=== PATIENT | male | born 1940 | race Caucasian/White ===

== ENCOUNTER 2017-12-29 13:57 | Emergency (ER) | payer OTHER ==
--- NOTE | 2017-12-29 14:17 | ER Report ---
History and Physical Time Seen By MD: 14:17 Hx. of Stated Complaint: dysuria x 4 days , pain swelling testicles bilaterally HPI/ROS 77 year old uncircumcised male , dysuria and frequency w urination Allergies: Coded Allergies: nitroglycerin (Verified Adverse Reaction, Unknown, NAUSEA/VOMITING, 12/29/17) Home Meds Active Scripts Doxycycline Hyclate (DOXYCYCLINE HYCLATE) 100 Mg Tablet, 100 MG PO BID for 10 Days Prov:MYRON JOHNSTON 12/29/17 Reported Medications Simvastatin (SIMVASTATIN) 20 Mg Tablet, 20 MG PO HS, TAB 12/29/17 Omeprazole (OMEPRAZOLE) 20 Mg Capsule.dr, 1 CAP PO QDAY, CAP 12/29/17 Metoprolol Tartrate (METOPROLOL TARTRATE) 25 Mg Tablet, PO BID, TAB 12/29/17 Past Medical/Surgical History Hypertension, hyperlipidemia Hx Smoking: No Exposure to Second Hand Smoke?: No Hx Substance Use Disorder: No Hx Alcohol Use: No Constitutional Vital Sign - Last 24 Hours 12/29/17 14:16 Temp 98.6 Pulse 60 Resp 16 B/P (MAP) 160/87 Pulse Ox 89 O2 Delivery Room Air Physical Exam 77 year old alert anxious, hrr lungs cta, abd soft, bs x 4, penis non circunsized, red tip, bilateral pain swelling testicles , pain testes no pain spermatic corn, no prostate pain Medical Decision Making Data Points Result Diagram: 12/29/17 1434 12/29/17 1434 Laboratory Hematology Test 12/29/17 14:02 12/29/17 14:34 Urine Color Yellow Urine Clarity Clear Urine pH 7.0 pH (4.8-9.5) Urine Specific [place] 1.011 Urine Protein Negative mg/dL (NEGATIVE) Urine Glucose (UA) Negative mg/dL (NEGATIVE) Urine Ketones Negative mg/dL (NEGATIVE) Urine Blood Negative (NEGATIVE) Urine Nitrite Negative (NEGATIVE) Urine Bilirubin Negative (NEGATIVE) Urine Urobilinogen 2.0 mg/dL (0.2-1.9) Urine Leukocyte Esterase Negative (NEGATIVE) Urine RBC None /HPF (0-2/HPF) Urine WBC <1 /HPF (0-5/HPF) Urine Squamous Epithelial Cells None /LPF (</=FEW) Urine Bacteria Negative /HPF (NONE-FEW) Urine Mucus None /HPF (NONE-FEW) Red Blood Count 4.40 M/uL (4.00-5.60) Mean Corpuscular Volume 96.7 fL (80.0-96.0) Mean Corpuscular Hemoglobin 32.9 pg (26.0-33.0) Mean Corpuscular Hemoglobin Concent 34.0 g/dL (32.0-36.0) Red Cell Distribution Width 13.4 % (11.5-14.5) Mean Platelet Volume 9.3 fL (7.2-11.1) Neutrophils (%) (Auto) 64.6 % (39.4-72.5) Lymphocytes (%) (Auto) 24.1 % (17.6-49.6) Monocytes (%) (Auto) 8.3 % (4.1-12.4) Eosinophils (%) (Auto) 2.3 % (0.4-6.7) Basophils (%) (Auto) 0.7 % (0.3-1.4) Nucleated RBC Relative Count (auto) 0.0 /100WBC Neutrophils # (Auto) 3.2 K/uL (2.0-7.4) Lymphocytes # (Auto) 1.2 K/uL (1.3-3.6) Monocytes # (Auto) 0.4 K/uL (0.3-1.0) Eosinophils # (Auto) 0.1 K/uL (0.0-0.5) Basophils # (Auto) 0.0 K/uL (0.0-0.1) Nucleated RBC Absolute Count (auto) 0.00 K/uL Sodium Level 143 mmol/L (137-145) Potassium Level 4.1 mmol/L (3.5-5.0) Chloride Level 107 mmol/L (98-107) Carbon Dioxide Level 25 mmol/L (22-30) Blood Urea Nitrogen 13 mg/dl (9-21) Creatinine 0.80 mg/dl (0.66-1.25) Glomerular Filtration Rate Calc > 60.0 Random Glucose 97 mg/dl (75-110) Calcium Level 9.0 mg/dl (8.4-10.2) Total Bilirubin 0.7 mg/dl (0.2-1.3) Aspartate Amino Transf (AST/SGOT) 23 U/L (0-35) Alanine Aminotransferase (ALT/SGPT) 27 U/L (0-56) Alkaline Phosphatase 45 U/L (0-126) Total Protein 7.2 g/dl (6.3-8.2) Albumin 4.1 g/dl (3.5-5.0) Chemistry Test 12/29/17 14:02 12/29/17 14:34 Urine Color Yellow Urine Clarity Clear Urine pH 7.0 pH (4.8-9.5) Urine Specific [place] 1.011 Urine Protein Negative mg/dL (NEGATIVE) Urine Glucose (UA) Negative mg/dL (NEGATIVE) Urine Ketones Negative mg/dL (NEGATIVE) Urine Blood Negative (NEGATIVE) Urine Nitrite Negative (NEGATIVE) Urine Bilirubin Negative (NEGATIVE) Urine Urobilinogen 2.0 mg/dL (0.2-1.9) Urine Leukocyte Esterase Negative (NEGATIVE) Urine RBC None /HPF (0-2/HPF) Urine WBC <1 /HPF (0-5/HPF) Urine Squamous Epithelial Cells None /LPF (</=FEW) Urine Bacteria Negative /HPF (NONE-FEW) Urine Mucus None /HPF (NONE-FEW) White Blood Count 4.9 k/uL (4.5-11.0) Red Blood Count 4.40 M/uL (4.00-5.60) Hemoglobin 14.5 g/dL (14.0-18.0) Hematocrit 42.5 % (42.0-52.0) Mean Corpuscular Volume 96.7 fL (80.0-96.0) Mean Corpuscular Hemoglobin 32.9 pg (26.0-33.0) Mean Corpuscular Hemoglobin Concent 34.0 g/dL (32.0-36.0) Red Cell Distribution Width 13.4 % (11.5-14.5) Platelet Count 154 K/uL (150-450) Mean Platelet Volume 9.3 fL (7.2-11.1) Neutrophils (%) (Auto) 64.6 % (39.4-72.5) Lymphocytes (%) (Auto) 24.1 % (17.6-49.6) Monocytes (%) (Auto) 8.3 % (4.1-12.4) Eosinophils (%) (Auto) 2.3 % (0.4-6.7) Basophils (%) (Auto) 0.7 % (0.3-1.4) Nucleated RBC Relative Count (auto) 0.0 /100WBC Neutrophils # (Auto) 3.2 K/uL (2.0-7.4) Lymphocytes # (Auto) 1.2 K/uL (1.3-3.6) Monocytes # (Auto) 0.4 K/uL (0.3-1.0) Eosinophils # (Auto) 0.1 K/uL (0.0-0.5) Basophils # (Auto) 0.0 K/uL (0.0-0.1) Nucleated RBC Absolute Count (auto) 0.00 K/uL Glomerular Filtration Rate Calc > 60.0 Calcium Level 9.0 mg/dl (8.4-10.2) Total Bilirubin 0.7 mg/dl (0.2-1.3) Aspartate Amino Transf (AST/SGOT) 23 U/L (0-35) Alanine Aminotransferase (ALT/SGPT) 27 U/L (0-56) Alkaline Phosphatase 45 U/L (0-126) Total Protein 7.2 g/dl (6.3-8.2) Albumin 4.1 g/dl (3.5-5.0) Urinalysis Test 12/29/17 14:02 Urine Color Yellow Urine Clarity Clear Urine pH 7.0 pH (4.8-9.5) Urine Specific [place] 1.011 Urine Protein Negative mg/dL (NEGATIVE) Urine Glucose (UA) Negative mg/dL (NEGATIVE) Urine Ketones Negative mg/dL (NEGATIVE) Urine Blood Negative (NEGATIVE) Urine Nitrite Negative (NEGATIVE) Urine Bilirubin Negative (NEGATIVE) Urine Urobilinogen 2.0 mg/dL (0.2-1.9) Urine Leukocyte Esterase Negative (NEGATIVE) Urine RBC None /HPF (0-2/HPF) Urine WBC <1 /HPF (0-5/HPF) Urine Squamous Epithelial Cells None /LPF (</=FEW) Urine Bacteria Negative /HPF (NONE-FEW) Urine Mucus None /HPF (NONE-FEW) EKG/Imaging Imaging FACILITY: [facility] - [place] PATIENT NAME: Rivera Perez : 1940 MR: [id number] V: [id number] EXAM DATE: ORDERING PHYSICIAN: MYRON JOHNSTON TECHNOLOGIST: Location: [facility] Patient: Rivera Perez : 1940 Visit/Account:[id number] Date of Sevromina: 12/29/2017 Examination: ULTRASOUND OF THE SCROTUM AND TESTES Comparison: None available. History: Testicular pain and swelling. Findings: Standard ultrasound of the testicles and scrotum with color flow and spectral analysis. Right testicle: 3.5 x 1.5 x 2.6 cm. Morphologically normal right testicle with normal waveforms on Doppler interrogation. Right epididymis: 6 x 5 x 6 mm cyst. Otherwise unremarkable. Left testicle: 4.0 x 1.4 x 2.5 cm. Morphologically normal left testicle with normal waveforms on Doppler interrogation. Left epididymis: Within normal limits. Hydrocele: None Varicocele: None Scrotum: Negative. IMPRESSION: Negative ultrasound of the scrotum and testicles. Report Dictated By: Shaji Jerome MD at 12/29/2017 3:51 PM Report E-Signed By: Shaji Jerome MD at 12/29/2017 3:55 PM WSN:[facility] ED Course/Re-evaluation ED Course Patient's lab work within normal limits no infection in the urine did have pain in his testes did a testicular ultrasound was read as negative we'll have him follow-up with urology M diagnosed with orchitis we'll start him on Doxy 100 twice a day Re-evaluation Patient ambulatory in room was given 1st DrLevar doxycycline in the emergency room is okay to go home is going to call his [facility] tomorrow to see if he needs to [facility] with [facility] or can go to local urologist he does have the number for local urology for follow-up Decision to Disposition Date: Dec 29, 2017 Decision to Disposition Time: 17:30 Depart Departure Latest Vital Signs Vital Signs Date Time Temp Pulse Resp B/P (MAP) Pulse Ox O2 Delivery O2 Flow Rate FiO2 12/29/17 14:16 98.6 60 16 160/87 89 Room Air Impression: Primary Impression: ORCHITIS Condition: Improved Disposition: HOME OR SELF-CARE Referrals: EMERALD ESPINOSA MD 1 Day New Scripts Doxycycline Hyclate (DOXYCYCLINE HYCLATE) 100 Mg Tablet 100 MG PO BID for 10 Days Prov: MYRON JOHNSTON [employer] 12/29/17 Patient Instructions: Orchitis (ED) Additional Instructions: I wanted to call tomorrow to urology for a close follow-up, take antibiotic as directed, return for increasing pain problems or concerns MYRON JOHNSTON Dec 29, 2017 14:17
[2017-12-29] MEDS ORDERED: OMEP-125 PO (14:30)
[2017-12-29] MEDS ORDERED: METO25TA93 PO (14:30)
[2017-12-29] MEDS ORDERED: SIMV-49 PO (14:30)
[2017-12-29] MEDS ORDERED: TRIMETH/SULFA DS 160-800MG TAB PO ONE (14:40)
[2017-12-29] MEDS ORDERED: FLUCONAZOLE 150 MG TAB PO ONE (14:40)
[2017-12-29 14:42] LABS: PLATELET COUNT, AUTOMATED 154 K/uL (150-450)
--- NOTE | 2017-12-29 15:59 | RADIOLOGY IMAGING REPORT ---
FACILITY: [facility] PATIENT NAME: Rivera Perez : 1940 MR: [id number] V: [id number] EXAM DATE: ORDERING PHYSICIAN: MYRON JOHNSTON [place]CHNOLOG[place]: [place] [facility] [place] : 1940 Visit/Account:[id number] Date of Sevice: 12/29/2017 Examination: ULTRASOUND OF THE SCROTUM AND TESTES Comparison: None available. History: Testicular pain and swelling. Findings: Standard ultrasound of the testicles and scrotum with color flow and spectral analysis. Right testicle: 3.5 x 1.5 x 2.6 cm. Morphologically normal right testicle with normal waveforms on Do ppler interrogation. Right epididymis: 6 x 5 x 6 mm cyst. Otherwise unremarkable. Left testicle: 4.0 x 1.4 x 2.5 cm. Morphologically normal left testicle with normal waveforms on Dopp ler interrogation. Left epididymis: Within normal limits. Hydrocele: None Varicocele: None Scrotum: Negative. IMPRESSION: Negative ultrasound of the scrotum and testicles. Report Dictated By: Shaji Jerome MD at 12/29/2017 3:51 PM Report E-Signed By: Shaji Jerome MD at 12/29/2017 3:55 PM WSN:[email or web address]
[2017-12-29] MEDS ORDERED: DOXY50SY2 PO (16:08)
[2017-12-29] MEDS ORDERED: cefTRIAXone 250 MG VIAL IM ONE (16:10)
[2017-12-29] MEDS ORDERED: DOXY-179 PO (16:12)
[2017-12-29 16:35] VITALS: BP 148/87
== END 2017-12-29 16:38 | disposition home or self-care (01) ==
LOC: ER 14:33
DX: N45.2 Orchitis (principal)
CPT/HCPCS: 36415; 76870; 81001; 85025; 96372; 99284; J0696; 82040; 82247; 82310; 82374; 82435; 82565; 82947; 84075; 84132; 84155; 84295; 84450; 84460; 84520